=== PATIENT | male | born 1955 | race Caucasian/White ===

== ENCOUNTER 2017-08-28 20:01 | Emergency (ER) | payer BC ==
[2017-08-28] MEDS ORDERED: Sodium Chloride 0.9% 10 ML Syringe FLUSH PRN (20:08)
[2017-08-28] MEDS ORDERED: Sodium Chloride 0.9% 1,000 ML IV ONE (20:57)
--- NOTE | 2017-08-28 22:53 | ER ---
DATE SEEN: 08/28/2017 CHIEF COMPLAINT: Dizziness. HISTORY OF PRESENT ILLNESS: This is a 62-year-old male who was brought in because of feeling dizzy for a few hours. He was feeling lightheaded and almost passing out along with being sweaty and struggling to breathe. He denies any pain. He has no other symptoms and was previously well today, but there was a question whether he had eaten or drunk as he normally does. He denies any nausea, vomiting, or diarrhea. He has no headache. PAST MEDICAL HISTORY: Hypertension, hyperlipidemia. 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 REVIEW OF SYSTEMS: All other systems were noncontributory. PHYSICAL EXAMINATION: GENERAL: Upon arrival, he appeared dusky and sick appearing. VITAL SIGNS: His blood pressure was 98 systolic/48. He was afebrile and he had a normal pulse. HEAD: Normocephalic. EYES: Normal. NECK: Supple. CHEST: Clear. CARDIOVASCULAR: Normal. SKIN: Damp and clammy. MENTAL STATUS: Alert and arousable. No focal findings on neurologic exam. ABDOMEN: Soft, benign. DIAGNOSTIC DATA: Labs: Creatinine was 1.4 with no previous comparison. EKG showed minimal ST changes, but not diagnostic of ST elevation MA. No arrhythmias. IMAGING: X-ray of the chest was unremarkable. D-dimer, BNP, troponin were all negative. FINAL IMPRESSION: 1. Orthostatic hypotension. 2. Mild dehydration. PLAN: I gave him 1 L of normal saline. Symptoms improved. His color improved. He was alert. He was able to walk the halls without any symptoms. I had advised him to discontinue the hypertension medication, lisinopril hydrochlorothiazide and see Catie Acosta NP tomorrow. Return to the ED with any worsening symptoms. He was released in the company of [employer]. /[id number] VIKA/BRIANNA
--- NOTE | 2017-08-29 11:53 | CR ---
INDICATION: Dizzy and diaphoretic. CHEST: An AP portable upright view of the chest was obtained 08/28/2017 - no comparisons. The heart is normal in size and shape. The aorta is tortuous with calcification in the arch area minimally. Overlying EKG leads are noted. Lungs appear to be somewhat hyperaerated, raising question of COPD, but should be correlated clinically. An active infiltrate or effusion was not identified. IMPRESSION: No acute process. MTDD
== END 2017-08-28 21:49 | disposition home or self-care (01) ==
LOC: FB.ED 20:01
DX: I95.1 Orthostatic hypotension (principal); E86.0 Dehydration; I10 Essential (primary) hypertension
CPT/HCPCS: 36415; 71045; 80048; 83880; 84484; 85025; 85379; 93005; 96360; 99284; G0480; J7040; J7050

== ENCOUNTER 2019-09-25 10:18 | Emergency (ER) | payer BC ==
[2019-09-25] MEDS ORDERED: Sodium Chloride 0.9% 1,000 ML IV ONE (10:44)
[2019-09-25] MEDS ORDERED: Nitroglycerin 0.4 MG Tab.SL SL ONE (10:45)
--- NOTE | 2019-09-25 10:47 | EDM.PDOC ---
ED HPI GENERAL MEDICAL PROBLEM - General Chief Complaint: Chest Pain Stated Complaint: CHEST PAIN SOB Time Seen by Provider: 09/25/19 10:20 Source of Information: Reports: Patient History Limitations: Reports: No Limitations - History of Present Illness INITIAL COMMENTS - FREE TEXT/NARRATIVE: chest pain since this am at 630am: localized to the left side of chest wall and radiates to the left shoulder left upper shoulder more painful , states pain is worse when he takes a deep breath thought it would get better went to work still has pain in the left chest area radiates to the neck has a history of anxiety Onset: Today Onset Date: 09/25/19 Duration: Hour(s): (3), Intermittent Location: Reports: Chest, Other (left shoulder) Quality: Reports: Ache, Dull Severity: Moderate Improves with: Reports: None Worsens with: Reports: None Associated Symptoms: Reports: Chest Pain LEFT UPPER CHEST Pain Score (Numeric/FACES): 4 - Related Data Allergies Allergy/AdvReac Type Severity Reaction Status Date / Time No Known Allergies Allergy Verified 09/25/19 10:54 Home Meds: Home Meds Cyanocobalamin/Folic Acid [Vitamin M60-Wolud Acid] 1 each PO DAILY 09/25/19 [ History] Cyclobenzaprine [Flexeril] 10 mg PO TID #30 tab 09/25/19 [Rx] Lisinopril/Hydrochlorothiazide [Lisinopril-Hctz 10-12.5 mg Tab] 1 each PO DAILY 09/25/19 [History] Nabumetone [Relafen] 750 mg PO BID #30 tab 09/25/19 [Rx] Omeprazole 20 mg PO DAILY 09/25/19 [History] atorvaSTATin [Lipitor] 20 mg PO DAILY 09/25/19 [History] Past Medical History HEENT History: Reports: Impaired Vision, Other (See Below) Other HEENT History: wears glasses Cardiovascular History: Reports: High Cholesterol, Hypertension - Infectious Disease History Infectious Disease History: Reports: Chicken Pox, Mumps Social & Family History - Family History Family Medical History: Noncontributory - Caffeine Use Caffeine Use: Reports: Coffee ED ROS GENERAL - Review of Systems Review Of Systems: See Below Constitutional: Denies: Fever, Chills, Malaise, Weakness, Fatigue HEENT: Reports: No Symptoms Respiratory: Reports: Pleuritic Chest Pain. Denies: Cough, Sputum Cardiovascular: Reports: No Symptoms Endocrine: Reports: No Symptoms GI/Abdominal: Reports: No Symptoms Musculoskeletal: Reports: No Symptoms Skin: Reports: No Symptoms Neurological: Reports: No Symptoms Psychiatric: Reports: Anxiety Hematologic/Lymphatic: Reports: No Symptoms Immunologic: Reports: No Symptoms ED EXAM, GENERAL - Physical Exam Exam: See Below Exam Limited By: No Limitations General Appearance: Alert, WD/WN, No Apparent Distress, Anxious Eye Exam: Bilateral Eye: EOMI Ears: Normal External Exam Nose: Normal Inspection Throat/Mouth: Normal Inspection, Normal Oropharynx Head: Atraumatic, Normocephalic Neck: Supple, Non-Tender Respiratory/Chest: Lungs Clear, Normal Breath Sounds Cardiovascular: Regular Rate, Rhythm GI/Abdominal: Soft, Non-Tender Neurological: Alert, Oriented, CN II-XII Intact Psychiatric: Anxious Skin Exam: Warm EKG INTERPRETATION EKG Date: 09/25/19 Rhythm: NSR [place]: Normal P-Wave: Present QRS: Normal ST-T: Normal Course - Vital Signs Last Recorded V/S: Last Vital Signs Temp 37.1 C 09/25/19 10:20 Pulse 87 09/25/19 11:34 Resp 18 09/25/19 11:34 BP 128/74 09/25/19 11:34 Pulse Ox 97 09/25/19 11:34 - Orders/Labs/Meds Orders: Active Orders 24 hr Category Date Time Status EKG Documentation Completion [RC] ASDIRECTED Care 09/25/19 10:43 Active Chest 1V Frontal [CR] Stat Exams 09/25/19 10:44 Taken Shoulder Comp Lt [CR] Stat Exams 09/25/19 11:45 Ordered EKG 12 Lead [EK] Routine Ther 09/25/19 10:42 Ordered Labs: Laboratory Tests 09/25/19 09/25/19 09/25/19 Range/Units 10:55 10:55 10:55 WBC 2.3 L (4.5-12.0) X10-3/uL RBC 3.58 L (4.30-5.75) x10(6)uL Hgb 12.3 L (13.5-17.8) g/dL Hct 36.1 (30.0-51.3) % MCV 100.9 H (80-96) fL MCH 34.5 H (27.7-33.6) pg MCHC 34.2 (32.2-35.4) g/dL RDW 14.4 (11.5-15.5) % Plt Count 81 L (125-369) X10(3)uL MPV 6.8 L (7.4-10.4) fL Add Manual Diff Yes Neutrophils % (Manual) 39 L (46-82) % Lymphocytes % (Manual) 32 (13-37) % Monocytes % (Manual) 29 H (4-12) % Differential Comment See note Anisocytosis Few Sodium 139 (135-145) mmol/L Potassium 3.8 (3.5-5.3) mmol/L Chloride 103 (100-110) mmol/L Carbon Dioxide 26 (21-32) mmol/L BUN 17 (7-18) mg/dL Creatinine 1.2 (0.70-1.30) mg/dL Est Cr Clr Drug Dosing TNP Estimated GFR (MDRD) > 60 (>60) BUN/Creatinine Ratio 14.2 (9-20) Glucose 114 (80-116) mg/dL Calcium 8.9 (8.6-10.2) mg/dL Troponin I 4.6 (4.0-60.3) pg/mL Meds: Medications Discontinued Medications Generic Name Dose Route Start Last Admin Trade Name Freq PRN Reason Stop Dose Admin Aspirin 324 mg 09/25/19 10:54 09/25/19 11:07 Aspirin PO 09/25/19 10:55 324 mg ONETIME ONE Administration Cyclobenzaprine HCl 10 mg 09/25/19 12:14 09/25/19 12:19 Flexeril PO 09/25/19 12:15 10 mg ONETIME ONE Administration Sodium Chloride 1,000 mls @ 999 mls/hr 09/25/19 10:44 09/25/19 11:08 Normal Saline IV 09/25/19 11:44 999 mls/hr .BOLUS ONE Administration Ketorolac Tromethamine 30 mg 09/25/19 11:40 09/25/19 11:55 Toradol IVPUSH 09/25/19 11:41 30 mg ONETIME ONE Administration Lorazepam 0.5 mg 09/25/19 11:42 09/25/19 11:56 Ativan IVPUSH 09/25/19 11:43 0.5 mg ONETIME ONE Administration Nitroglycerin 0.4 mg 09/25/19 10:45 09/25/19 11:19 Nitrostat SL 09/25/19 10:46 0.4 mg ONETIME ONE Administration - Re-Assessments/Exams Free Text/Narrative Re-Assessment/Exam: 09/25/19 11:49 EKG , labs done normal given 1 tab SL NTG and no relieve of pain noted tenderness to palpation in the upper part of the shoulder noted pt given toradol , warm heat to the area 09/25/19 12:42 pt declined to have xray of the shoulder done he did feel better and able to move the shoulder after toradol , flexeril Departure - Departure Time of Disposition: 12:45 Disposition: Home, Self-Care 01 Condition: Fair Clinical Impression: Atypical chest pain, Muscle strain of left shoulder region, Muscle spasm of left shoulder Clinical Impression: (Ruled Out): COVID-19 virus infection, Respiratory distress, acute, SOB ( shortness of breath), MRSA (methicillin resistant Staphylococcus aureus), Multiple sclerosis Prescriptions: Cyclobenzaprine [Flexeril] 10 mg PO TID #30 tab Nabumetone [Relafen] 750 mg PO BID #30 tab Instructions: Muscle Cramps and Spasms, [id number], Heat Therapy, Easy-to- Read Referrals: Catie Acosta, [facility] CALL [Primary Care Provider] - Forms: ED Department Discharge Additional Instructions: 1) WARM COMPRESS TO THE AFFECTED AREA 3 TIMES A DAY S NEEDED 2) CONTINUE WITH GENTLE RANGE OF MOTION 3) MAKE APPOINTMENT TO SEE YOUR PCP IN 2-3 DAYS FOR FOLLOW UP Sepsis Event Note - Focused Exam Vital Signs: Vital Signs Temp Pulse Resp BP BP Pulse Ox 09/25/19 11:34 87 18 128/74 97 09/25/19 11:19 132/74 09/25/19 10:20 37.1 C 82 18 129/78 100 Date Exam was Performed: 09/25/19 Time Exam was Performed: 12:41 - My Orders Last 24 Hours: My Active Orders 09/25/19 10:42 EKG 12 Lead [EK] Routine 09/25/19 10:43 EKG Documentation Completion [RC] ASDIRECTED 09/25/19 10:44 Chest 1V Frontal [CR] Stat 09/25/19 11:45 Shoulder Comp Lt [CR] Stat - Assessment/Plan Last 24 Hours: My Active Orders 09/25/19 10:42 EKG 12 Lead [EK] Routine 09/25/19 10:43 EKG Documentation Completion [RC] ASDIRECTED 09/25/19 10:44 Chest 1V Frontal [CR] Stat 09/25/19 11:45 Shoulder Comp Lt [CR] Stat
[2019-09-25] MEDS ORDERED: Aspirin 81 MG Tab.Chew PO ONE (10:54)
[2019-09-25] MEDS ORDERED: Ketorolac 30 MG/ML SDV IVPUSH ONE (11:40)
[2019-09-25] MEDS ORDERED: LORazepam 2 MG/ML SDV IVPUSH ONE (11:42)
[2019-09-25] MEDS ORDERED: Cyclobenzaprine 10 MG Tab PO ONE (12:14)
--- NOTE | 2019-09-27 10:19 | CR ---
INDICATION: Chest pain. CHEST, ONE VIEW: AP portable upright view of the chest 09/25/19 was compared with 08/28/17 again revealing the heart to be normal in size and shape. The aorta is tortuous with calcification in the arch. Overlying EKG leads are noted. Linear density at the left lung base is again noted compatible with fibrosis or recurrent linear atelectatic change. Consolidating pneumonia or effusion was not identified. IMPRESSION: 1. No definite acute process. 2. ASD aorta. MTDD
== END 2019-09-25 12:57 | disposition home or self-care (01) ==
LOC: FB.ED 10:18
DX: S46.912A Strain of unspecified muscle, fascia and tendon at shoulder and upper arm level, left arm, initial encounter (principal); R07.89 Other chest pain; E78.00 Pure hypercholesterolemia, unspecified; I10 Essential (primary) hypertension; Z79.899 Other long term (current) drug therapy; X58.XXXA Exposure to other specified factors, initial encounter
CPT/HCPCS: 36415; 71045; 80048; 84484; 85025; 93005; 96361; 96374; 96375; 99285-25; A9270-GY; J1885; J2060; J7030

== ENCOUNTER 2019-12-31 15:54 | Emergency (ER) | payer BC ==
--- NOTE | 2019-12-31 16:19 | EDM.PDOC ---
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 and had neutropenia following this. He has been feeling well during this time and has kept pretty much to his house during this entire period and today went to the [facility] in [place] and had a CBC performed. The CBC showed that he was still neutropenic with an absolute neutrophil count of 400. He also had a hemoglobin of 11.4 and a platelet count of 94,000. These are in keeping with his previous values apparently. He states that he went home following the blood draw and at about 2 PM he awoke from a nap and he felt warm and he took his temperature was 101F and it eventually maxed out at 102.7F. He reports that he feels well. He has had no cough. No nasal congestion. No sore throat. No abdominal pain. No sore throat. No dysuria or hematuria. He has had normal bowel movements without diarrhea. He has no anal pain. He has no skin rashes or skin breakdown. When he presents here his temperature is 101.4F. He has had some mild nausea but this is nothing unusual for him. He tells me that he has no other symptoms. He feels well now. He also tells me that he has no pain. He rates his pain as a 0/10. He was told to come here for further evaluation. Apparently, his oncologist is Dr. Mittal and Dr. Mittal was not available today because of a personal illness and the patient was not able to contact Dr. Mittal as he was directed was actually quite upset about this and was somewhat agitated related to this. There are no other associated signs or symptoms. There are no other modifying factors. Onset: Today (MAXIMUM TEMPERATURE of 102.7 today.) Duration: Constant Location: Reports: Other (No pain. 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 (Took 1000 mg of Tylenol at home.) - Related Data Allergies Allergy/AdvReac Type Severity Reaction Status Date / Time tamsulosin Allergy Hives Verified 12/31/19 16:26 Home Meds: Home Meds Cyanocobalamin/Folic Acid [Vitamin W37-Hlblb Acid] 1 each PO DAILY 09/25/19 [History] Cyclobenzaprine [Flexeril] 10 mg PO TID #30 tab 09/25/19 [Rx] Lisinopril/Hydrochlorothiazide [Lisinopril-Hctz 10-12.5 mg Tab] 1 each PO DAILY 09/25/19 [History] Nabumetone [Relafen] 750 mg PO BID #30 tab 09/25/19 [Rx] Omeprazole 20 mg PO DAILY 09/25/19 [History] atorvaSTATin [Lipitor] 20 mg PO DAILY 09/25/19 [History] Ciprofloxacin [Ciprofloxacin HCl] 500 mg PO BID 12/31/19 [History] Past Medical History HEENT History: Reports: Impaired Vision, Other (See Below) Other HEENT History: wears glasses Cardiovascular History: Reports: High Cholesterol, Hypertension Psychiatric History: Reports: Anxiety Oncologic (Cancer) 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.) ED ROS GENERAL - Review of Systems Review Of Systems: See Below Constitutional: Reports: Fever HEENT: Reports: No Symptoms Respiratory: Reports: No Symptoms Cardiovascular: Reports: No Symptoms Endocrine: Reports: No Symptoms GI/Abdominal: Reports: Nausea (Mild nausea off and on) : Reports: No Symptoms Musculoskeletal: Reports: No Symptoms Skin: Reports: No Symptoms Neurological: Reports: No Symptoms Hematologic/Lymphatic: Reports: No Symptoms Immunologic: Reports: Other (He has neutropenia with a neutrophil count of 400.) ED EXAM, GENERAL - Physical Exam Exam: See Below Exam Limited By: No Limitations General Appearance: Alert, WD/WN, No Apparent Distress Eye Exam: Bilateral Eye: EOMI, Normal Inspection, PERRL Ears: Normal External Exam, Hearing Grossly Normal Ear Exam: Bilateral Ear: Auricle Normal Nose: Normal Inspection, Normal Mucosa, No Blood Throat/Mouth: Normal Inspection, Normal Lips, Normal Oropharynx, Normal Voice, No Airway Compromise Head: Atraumatic, Normocephalic Neck: Normal Inspection, Supple, Non-Tender, Full Range of Motion Respiratory/Chest: No Respiratory Distress, Lungs Clear, Normal Breath Sounds, No Accessory Muscle Use, Chest Non-Tender Cardiovascular: Normal Peripheral Pulses, Regular Rate, Rhythm, No JVD, No Murmur Peripheral Pulses: 2+: Radial (L), Radial (R) GI/Abdominal: Normal Bowel Sounds, Soft, Non-Tender, No Mass Back Exam: Normal Inspection. No: CVA Tenderness (R), CVA Tenderness (L) Extremities: Normal Inspection, Normal Range of Motion, Non-Tender, No Pedal Edema, Normal Capillary Refill Neurological: Alert, Oriented, CN II-XII Intact, Normal Cognition, No Motor/Sensory Deficits Psychiatric: Anxious Skin Exam: Warm, Dry, Intact, Normal Color, No Rash Course - Vital Signs Last Recorded V/S: Last Vital Signs Temp 38.2 C H 12/31/19 16:37 Pulse 87 12/31/19 16:00 Resp 17 12/31/19 16:00 BP 105/63 12/31/19 16:00 Pulse Ox 100 12/31/19 16:00 - Orders/Labs/Meds Labs: Laboratory Tests 12/31/19 Range/Units 16:55 Urine Color Yellow (YELLOW) Urine Appearance Clear (CLEAR) Urine pH 5.0 (5.0-6.5) Ur Specific Mitchell 1.005 L (1.010-1.025) Urine Protein Negative (NEGATIVE) mg/dL Urine Glucose (UA) Normal (NORMAL) mg/dL Urine Ketones Negative (NEGATIVE) mg/dL Urine Occult Blood Negative (NEGATIVE) Urine Nitrite Negative (NEGATIVE) Urine Bilirubin Negative (NEGATIVE) Urine Urobilinogen Normal (NEGATIVE) mg/dL Ur Leukocyte Esterase Negative (NEGATIVE) Urine RBC Not seen (0-5) Urine WBC 0-5 (0-5) Ur Squamous Epith Cells Rare (NS,R,O) Urine Bacteria Rare H (NS) - Re-Assessments/Exams Free Text/Narrative Re-Assessment/Exam: 12/31/19 17:25: Patient with absolute neutropenia. He has a documented fever. I did call and discussed patient's case with Dr. Castano, oncologist director of diversity and inclusion at [facility] in [place], and he recommends that the patient did tests which included blood cultures, urinalysis and a urine culture and O a chest x-ray and he recommends that the patient be admitted to the hospital and placed on IV antibiotics. He recommends either Zosyn or cefepime. The patient didn't allow us to obtain urine which came back and was normal. However, when I discussed the recommendations of Dr. Castano to admit him to the hospital be placed on IV antibiotics after blood tests had been performed as well as chest x-ray, the patient reports to me that he would not be admitted and that he would be going home. I discussed the risk associated with this which include significant morbidity and mortality. Despite this, he still tells me that he would not stay in the hospital, would not allow any further blood testing or chest x-ray and be going home. He is doing such AGAINST MEDICAL ADVICE. I did call and informed the [facility] to inform the oncologist of the patient's actions. I have encouraged the patient to come back at any time for completion of cares for reevaluation. I have encouraged him to call and discuss this with his oncologist. 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 Sepsis Event Note (ED) - Evaluation Sepsis Screening Result: No Definite Risk - Focused Exam Vital Signs: Vital Signs Temp Pulse Resp BP Pulse Ox 12/31/19 16:37 38.2 C H 12/31/19 16:00 38.6 C H 87 17 105/63 100
== END 2019-12-31 17:28 | disposition left against medical advice (07) ==
LOC: FB.ED 15:54
DX: D70.9 Neutropenia, unspecified (principal); R50.81 Fever presenting with conditions classified elsewhere; D89.9 Disorder involving the immune mechanism, unspecified; C91.40 Hairy cell leukemia not having achieved remission; E78.00 Pure hypercholesterolemia, unspecified; I10 Essential (primary) hypertension; F17.200 Nicotine dependence, unspecified, uncomplicated; Z88.8 Allergy status to other drugs, medicaments and biological substances; Z79.899 Other long term (current) drug therapy
CPT/HCPCS: 81001; 87086; 99283